=== PATIENT | male | born 1955 | race African-American/Black ===

== ENCOUNTER 2016-10-29 07:14 | Emergency (ER) | payer BC ==
[~2016-10-29] VITALS: Ht 172.7 cm; Wt 81.6 kg
[2016-10-29 07:36] VITALS: BP 134/91
--- NOTE | 2016-10-29 07:53 | RAD ---
Left knee, 3 views, 10/29/2016: History: Fall, pain, swelling No acute fracture or dislocation is identified. There are moderate degenerative changes at the knee joint and at the patellofemoral articulation. A large joint effusion is evident. IMPRESSION: 1. Moderate degenerative change. 2. No acute bony abnormality is detected. 3. Large knee joint effusion.
[2016-10-29] MEDS ORDERED: KETOROLAC TROMETHAMINE 60 MG/2 ML SYRINGE. IM ONE (08:00)
[2016-10-29] MEDS ORDERED: DEXAMETHASONE SOD PHOS 20 MG/5 ML VIAL. IM ONE (08:00)
--- NOTE | 2016-10-29 08:09 | PHYS DOC ---
Past Medical History Past Medical History: Arthritis (left knee) Adult General Chief Complaint Chief Complaint: KNEE INJURY HPI HPI Patient is a 61 year old male who presents with moderate left knee pain and swelling that began yesterday. Patient states yesterday he went to play golf without his knee brace and developed knee pain and swelling. Patient states he has previous history of left knee joint effusion, arthritis and typically follows up with ortho for draining his knee Denies falling. Patient takes meloxicam and hydrocodone as needed. Review of Systems Review of Systems Constitutional: Denies fever or chills [] Musculoskeletal: moderate left knee pain and swelling Integument: Denies rash or skin lesions [] Neurologic: Denies headache, focal weakness or sensory changes [] Endocrine: Denies polyuria or polydipsia [] Current Medications Current Medications Current Medications Medications (Trade) Dose Ordered Sig/Jose De Jesus Start Time Stop Time Status Last Admin Dose Admin Dexamethasone Sodium Phosphate (Decadron) 10 mg 1X ONCE 10/29/16 08:00 10/29/16 08:08 DC Ketorolac Tromethamine (Toradol Im) 60 mg 1X ONCE 10/29/16 08:00 10/29/16 08:08 DC Allergies Allergies Allergies Coded Allergies Type Severity Reaction Last Updated Verified No Known Drug Allergies 10/29/16 No Physical Exam Physical Exam Constitutional: Well developed, well nourished, no acute distress, non-toxic appearance. [] Skin: Warm, dry, no erythema, no rash. [] Back: No tenderness, no CVA tenderness. [] Extremities: left knee with Moderate swelling on the anterior aspect with no warmth. Slight tenderness on palpation of the left anterior knee. Full ROM to the left knee with negative Elvin's sign, negative Ravinder's sign, negative anterior posterior sign, +2 left pedal pulse, cap refill <2 secs to the left LE. Neurologic: Alert and oriented X 3, normal motor function, normal sensory function, no focal deficits noted. [] Psychologic: Affect normal, judgement normal, mood normal. [] Current Patient Data Vital Signs Vital Signs Date Time Temp Pulse Resp B/P Pulse Ox O2 Delivery O2 Flow Rate FiO2 10/29/16 07:36 98.2 77 12 96 Room Air 98.2 EKG EKG [] Radiology/Procedures Radiology/Procedures []PROCEDURE: KNEE LEFT 3V Left knee, 3 views, 10/29/2016: History: Fall, pain, swelling No acute fracture or dislocation is identified. There are moderate degenerative changes at the knee joint and at the patellofemoral articulation. A large joint effusion is evident. IMPRESSION: 1. Moderate degenerative change. 2. No acute bony abnormality is detected. 3. Large knee joint effusion. DICTATED and SIGNED BY: JANET ALVAREZ MD DATE: 10/29/16 0750 CC: PRIYA BROOKS MD; CHANO RICHARDS APRN ~ Course & Med Decision Making Course & Med Decision Making Pertinent Labs and Imaging studies reviewed. (See chart for details) Patient with history of arthritis and joint effusion to the left knee presents today for knee pain and swelling after playing golf without his knee brace. Left knee x-ray positive for arthritis, large joint effusion, no acute findings. Patient put his knee brace on, neurovascular exam done by me post splint application is normal, cap refill less than 2 seconds. Encouraged patient to ice and elevate the extremity. He has an orthopedic doctor. Encouraged him to contact the orthopedic doctor and follow-up tomorrow. He was given Toradol and Decadron IM in the ED. He was discharged with Medrol Dosepak and instructed to continue taking meloxicam and hydrocodone as needed. Dragon Disclaimer Dragon Disclaimer This electronic medical record was generated, in whole or in part, using a voice recognition dictation system. Departure Departure Impression: Primary Impression: Joint effusion of knee Additional Impression: DJD (degenerative joint disease) of knee Disposition: 01 HOME, SELF-CARE Condition: STABLE Referrals: PRIYA BROOKS MD (PCP) DEMETRI MCLAUGHLIN APRN follow up with her tomorrow Patient Instructions: Arthritis, Degenerative-Brief Additional Instructions: You were seen for large joint effusion of the left knee, please wear your brace , keep the knee elevated, continue taking your pain medicines. Take the steroids as well, follow-up with your own orthopedic doctor tomorrow. Scripts Methylprednisolone (Medrol)4 Mg Tab.ds.pk1 Pkg PO UD #1 PKG Prov:CHANO RICHARDS APRN 10/29/16 Problem Qualifiers Additional Impression: DJD (degenerative joint disease) of knee Osteoarthritis type: unspecified Laterality: left Qualified Code: M17.9 - Osteoarthritis of knee, unspecified CHANO RICHARDS APRN Oct 29, 2016 08:09
[2016-10-29] MEDS ORDERED: METH4TAB2 PO (08:16)
== END 2016-10-29 08:30 | disposition home or self-care (01) ==
LOC: ER 07:14
DX: M17.12 Unilateral primary osteoarthritis, left knee (principal)
CPT/HCPCS: 73562; 96372; 99284; J1100; J1885

== ENCOUNTER → 2017-01-23 | Outpatient (CLI) | payer BC ==
[~2017-01-23] MED LIST: METH4TAB2 PO
--- NOTE | 2017-01-23 16:52 | RAD ---
PROCEDURE MR of the left knee HISTORY Medial knee pain after a fall 5 months ago. TECHNIQUE Routine multiplanar sequences are obtained. COMPARISON None FINDINGS Degenerative tear of the medial meniscus. Degenerative tear of the lateral meniscus. The anterior cruciate ligament not visualized, compatible with a chronic rupture. Anterior tibial translation is identified. Posterior cruciate ligament demonstrates mild degenerative signal but no acute rupture. Mild scarring of the proximal medial collateral ligament. No acute tear. Iliotibial band unremarkable. Fibular collateral ligament, biceps femoris tendon and popliteus tendon are intact. There is some mild signal and thickening of the popliteus tendon and fibular collateral ligament at the femoral attachments, compatible with degeneration. Extensor mechanism is intact. No significant joint effusion. No evidence of osteochondral loose body. Moderate chondromalacia at the medial compartment. Severe chondromalacia with subchondral bone exposure at the posterior aspect of the lateral joint compartment. Severe chondromalacia at the patellofemoral joint. There is reactive or degenerative type subchondral cyst, large, at the posterior lateral femoral condyle. Smaller subchondral reactive cysts are seen elsewhere about the knee. No aggressive bone destruction. No acute soft tissue injury. No significant Mandujano cyst. IMPRESSION 1. Medial meniscal tear. 2. Lateral meniscal tear. 3. 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 4. Primary osteoarthritis, most severe at the posterior aspect of the lateral joint compartment. Electronically signed by: Epifanio Montiel MD (Jan 23, 2017 16:50:44)
== END | disposition home or self-care (01) ==
LOC: MRI 15:33
PROVIDERS: ATTEND Nurse Practitioner Gerontology
DX: M17.12 Unilateral primary osteoarthritis, left knee (principal)
CPT/HCPCS: 73721

== ENCOUNTER 2017-03-18 06:21 | Emergency (ER) | payer BC ==
[~2017-03-18] VITALS: Ht 172.7 cm; Wt 81.6 kg
[2017-03-18 06:50] VITALS: BP 127/81
[2017-03-18] MEDS ORDERED: LIDOCAINE 1%/EPI 1:100,000 20 ML VIAL. INJ ONE (07:00)
[2017-03-18] MEDS ORDERED: OXYC-323 PO (07:18)
--- NOTE | 2017-03-18 07:20 | PHYS DOC ---
Past Medical History Past Medical History: Arthritis Additional Past Medical Histor: RUPTURED LEFT KNEE TENDON Past Surgical History: No Surgical History Alcohol Use: None Drug Use: Marijuana Adult General Chief Complaint Chief Complaint: KNEE SWELLING HPI HPI Patient is a 61 year old male presenting to the emergency department for evaluation of left knee swelling and pain. Patient has very bad arthritis and is going to have surgery with Dr. Garcia shortly. He has been playing and multiple golf tournaments with classmates for his class reunion and says that that set it off and now he has a fairly large effusion. He is able to ambulate without difficulty and there is no redness warmth fevers chills nausea vomiting or other systemic symptoms. Review of Systems Review of Systems Constitutional: Denies fever or chills [] Musculoskeletal: Denies back pain. + L knee joint pain [] Integument: Denies rash or skin lesions [] Neurologic: Denies headache, focal weakness or sensory changes [] Allergies Allergies Allergies Coded Allergies Type Severity Reaction Last Updated Verified No Known Drug Allergies 10/29/16 No Physical Exam Physical Exam Constitutional: Well developed, well nourished, no acute distress, non-toxic appearance. [] Cardiovascular:Heart rate regular rhythm, no murmur [] Lungs & Thorax: Bilateral breath sounds clear to auscultation [] Skin: Warm, dry, no erythema, no rash. [] Extremities: Left knee with large effusion noted. No redness warmth to palpation. He has good active and passive range of motion and can bear weight with no difficulty. Neurologic: Alert and oriented X 3, normal motor function, normal sensory function, no focal deficits noted. [] Current Patient Data Vital Signs Vital Signs Date Time Temp Pulse Resp B/P (MAP) Pulse Ox O2 Delivery O2 Flow Rate FiO2 03/18/17 06:50 98.8 59 16 127/81 (96) 96 Room Air 98.8 EKG EKG [] Radiology/Procedures Radiology/Procedures Indication: Left knee effusion Consent: Consent given by patient. Procedure: The [left knee] was positioned appropriately and the landmarks were identified. Local anesthesia was [10 mL of 1% lidocaine with epinephrine]. The area was then prepped and draped in the usual sterile fashion. A needle was then introduced into the joint space and 85 mL of bloody joint fluid was aspirated. A sterile dressing was then applied to the site. The patient tolerated the procedure well. Complications: none. [][] Course & Med Decision Making Course & Med Decision Making Left knee drained with no complications. He says that it is usually a bloody effusion as it was this time. Recommended continued NSAIDs and fourth of follow -up and to return with any new or worsening pain fevers swelling or other general concerns. Dragon Disclaimer Dragon Disclaimer This electronic medical record was generated, in whole or in part, using a voice recognition dictation system. Departure Departure Impression: Primary Impression: Joint effusion of knee Additional Impression: DJD (degenerative joint disease) of knee Disposition: HOME, SELF-CARE Condition: GOOD Referrals: PRIYA BROOKS MD (PCP) Patient Instructions: Knee Effusion Additional Instructions: TAKE YOUR MELOXICAM PRESCRIBED AND THE PERCOCET FOR BREAKTHROUGH PAIN. ELEVATE YOUR LEG, PUT ICE ON IT. COME BACK TO THE ED WITH ANY NEW OR WORSENING SYMPTOMS. THANK YOU! Scripts Oxycodone/Apap 5-325 (PERCOCET 5-325 MG TABLET) 1 Each Tablet 1 TAB PO PRN Q6HRS Y for PAIN, #20 TAB 0 Refills Prov: PRIYA NGUYEN DO 03/18/17 Problem Qualifiers PRIYA NGUYEN DO Mar 18, 2017 07:20
== END 2017-03-18 07:23 | disposition home or self-care (01) ==
LOC: ER 06:21
DX: M25.462 Effusion, left knee (principal); M17.12 Unilateral primary osteoarthritis, left knee; F12.10 Cannabis abuse, uncomplicated
CPT/HCPCS: 20610; 99284; J3490

== ENCOUNTER 2018-05-08 19:30 | Emergency (ER) | payer BC ==
[2018-05-08] MEDS: IV NORMAL SALINE 1000ML BAG 1,000 ML IV ×2 (20:14)
[2018-05-08 20:19] LABS: ADD MAN DIFF? NO
[2018-05-08] MEDS ORDERED: ONDANSETRON PF 4 MG/2 ML VIAL. ×2 (20:19)
[2018-05-08 20:21] LABS: BASO # 0.1 x10^3/uL (0.0-0.2); BASO % 1 % (0-3); EOS # 0.3 x10^3/uL (0.0-0.7); EOS % 4 % (0-3); LYMPH # 2.8 x10^3/uL (1.0-4.8); LYMPH % 38 % (24-48); MEAN CORPUSCULAR HEMOGLOBIN 28 pg (25-35); MEAN CORPUSCULAR HGB CONC 33 g/dL (31-37); MEAN CORPUSCULAR VOLUME 84 fL (79-100); MONO # 0.5 x10^3/uL (0.0-1.1); MONO % 7 % (0-9); NEUT # 3.8 x10^3uL (1.8-7.7); NEUT % 51 % (31-73); PLATELET COUNT 177 x10^3/uL (140-400); RED CELL DISTRIBUTION WIDTH 14.9 % (11.5-14.5); WHITE BLOOD COUNT 7.5 x10^3/uL (4.0-11.0)
[2018-05-08] MEDS: methylPREDNISolone SOD SUCC PF 125 MG/2 ML VIAL. IV ×2 (20:21)
[2018-05-08] MEDS: ONDANSETRON PF 4 MG/2 ML VIAL. IV ×2 (20:21)
[2018-05-08 20:36] LABS: ANION GAP 10 (6-14); BLOOD UREA NITROGEN 20 mg/dL (8-26); CALCIUM 8.7 mg/dL (8.5-10.1); CARBON DIOXIDE 26 mmol/L (21-32); CHLORIDE 103 mmol/L (98-107); CREATININE 1.1 mg/dL (0.7-1.3); GFR 82.6; GLUCOSE 112 mg/dL (70-99); MAGNESIUM 1.8 mg/dL (1.8-2.4); POTASSIUM 3.7 mmol/L (3.5-5.1); SODIUM 139 mmol/L (136-145)
[2018-05-08 20:40] LABS: TROPONINI < 0.017 ng/mL (0.000-0.055)
[2018-05-08 20:41] LABS: BILIRUBIN,URINE NEGATIVE (NEG); CLARITY,URINE CLEAR; COLOR,URINE YELLOW; GLUCOSE,URINE NEGATIVE (NEG); NITRITE,URINE NEGATIVE (NEG); PH,URINE 6.5; PROTEIN,URINE NEGATIVE (NEG-TRACE)
[2018-05-08 20:42] LABS: BACTERIA,URINE 0 /HPF (0-FEW); RBC,URINE 0 /HPF (0-2); WBC,URINE 0 /HPF (0-4)
[2018-05-08 20:44] LABS: AMPHETAMINE/METHAMPHETAMINE NEG (NEG); BARBITURATES NEG (NEG); BENZODIAZEPINES NEG (NEG); CANNABINOIDS NEG (NEG); COCAINE NEG (NEG); ETHANOL, URINE NEG (NEG); METHADONE NEG (NEG); OPIATES POS (NEG); PHENCYCLIDINE NEG (NEG)
[2018-05-08 20:48] LABS: NT-PRO BNP 23 pg/mL (0-124)
[2018-05-08 20:48] LABS: CKMB INDEX 0.7 % (0-4); CKMB MASS 1.4 ng/mL (0.0-3.6); CREATINE KINASE 203 U/L (39-308)
[2018-05-08] MEDS: AMOXICILLIN/K CLAV 875/125MG TABLET. PO ×2 (21:35)
[2018-05-08] MEDS: ACETAMINOPHEN 500 MG TABLET PO ×2 (21:35)
[2018-05-08] MEDS: KETOROLAC 30 MG/ML INJ. IV ×2 (21:35)
== END 2018-05-08 22:32 | disposition home or self-care (01) ==
LOC: ER 19:30
DX: R51 Headache (principal); R50.9 Fever, unspecified; J32.3 Chronic sphenoidal sinusitis; J32.9 Chronic sinusitis, unspecified; M19.90 Unspecified osteoarthritis, unspecified site
CPT/HCPCS: 36415; 70450; 71045; 80048; 80307; 81001; 82553; 83735; 83880; 84484; 85025; 93005; 96374; 96375; 99285-25; J1885; J2405; J2930; J7030

== ENCOUNTER → 2018-11-20 | Outpatient (CLI) | payer BC ==
[2018-05-08 21:35] VITALS: BP 136/82
[~2018-11-20] MED LIST changes: +AMOX1TAB61 PO; +OXYC1TAB15 PO
--- NOTE | 2018-11-20 08:51 | RAD ---
EXAM: Maxillofacial bone CT without contrast. HISTORY: Horizontal nystagmus. TECHNIQUE: Computed tomographic images of the maxillofacial bones were obtained without contrast. *One or more of the following individualized dose reduction techniques were utilized for this examination: 1. Automated exposure control. 2. Adjustment of the mA and/or kV according to patient size. 3. Use of iterative reconstruction technique. COMPARISON: Head CT dated 05/08/2018. FINDINGS: There is complete opacification of the right aspect of the sphenoid sinus with associated right sphenoid sinus wall thickening due to the sequela of chronic sinusitis. There is a small adjacent sphenoid sinus mucus retention cyst. There is a 1.3 cm soft tissue lesion within the posterior right ethmoid sinus, likely due to a mucous retention cyst. There is minimal bilateral maxillary and left sphenoid sinus mucosal thickening. There is slight attenuation of the ostiomeatal units. There is no significant nasal septal deviation. The temporomandibular joints are intact. No orbital lesion is seen. The mastoid air cells are clear. There is no calvarial lesion within the [id number]. There is no mass effect or midline shift. There is no hydrocephalus. IMPRESSION: 1. Chronic right sphenoid sinus disease and minimal mucosal thickening involving the bilateral maxillary and left sphenoid sinus. 2. Slight interval increase in a 1.3 cm soft tissue lesion along the posterior right ethmoid sinus, likely a mucous retention cyst. Electronically signed by: Mili Teresa MD (11/20/2018 8:48 AM) [id number]
== END | disposition home or self-care (01) ==
LOC: CT 08:19
PROVIDERS: ATTEND Internal Medicine
DX: H55.09 Other forms of nystagmus (principal)
CPT/HCPCS: 70486

== ENCOUNTER → 2018-12-25 | Outpatient (CLI) | payer BC ==
[2018-05-08 21:35] VITALS: BP 136/82
[~2018-12-25] MED LIST changes: +GADOBUTROL 7.5 MMOL/7.5 ML VIAL IV ONE
--- NOTE | 2018-12-25 11:54 | RAD ---
MRI of the paranasal sinuses without contrast 12/25/2018 CLINICAL HISTORY: Right posterior ethmoid sinus soft tissue lesion seen on CT. TECHNIQUE: Unenhanced T1-weighted and fat-saturated T2-weighted sagittal axial and coronal images of the paranasal sinuses were obtained. After the intravenous administration of 7.5 cc of Gadavist, enhanced fat saturated T1 weighted sagittal, axial and coronal images were obtained. FINDINGS: Comparison is made to the patient's CT scan of the paranasal sinuses dated 11/20/2018. Mild mucosal thickening is involving both maxillary sinuses. Mild to moderate mucosal thickening is seen scattered throughout the ethmoid air cells bilaterally. Moderate to severe mucosal thickening is seen involving the sphenoid sinus. The right aspect of the sphenoid sinus is completely opacified by mucosal thickening. These findings are unchanged. Mild mucosal thickening is seen involving inferior aspect of both frontal sinuses. No air-fluid level is seen. Polypoid mucosal thickening is seen involving the posterior aspect of the right superior nasal cavity, unchanged. No abnormal soft tissue mass or area of abnormal contrast enhancement is noted. IMPRESSION: Mild to moderate mucosal thickening in seen scattered throughout the paranasal sinuses as outlined above. No air-fluid level is seen. No abnormal soft tissue mass is definitely visualized. Electronically signed by: Rikki Ascencio MD (12/25/2018 11:52 AM) [email or web address]
== END | disposition home or self-care (01) ==
LOC: MRI 08:29
PROVIDERS: ATTEND Otolaryngology
DX: J34.89 Other specified disorders of nose and nasal sinuses (principal); R22.0 Localized swelling, mass and lump, head
CPT/HCPCS: 70543; A9585